=== PATIENT | female | born 1945 | race Caucasian/White ===

== ENCOUNTER 2017-09-03 09:19 | Emergency (ER) | payer MEDICARE ==
--- NOTE | 2017-09-03 10:05 | RAD ---
HISTORY: Altered mental status COMPARISONS: MRI of the brain dated May 07, 2016 TECHNIQUE: Multiple contiguous axial CT scans were obtained of the head without intravenous contrast. FINDINGS: HEMORRHAGE/INFARCT: There is no hemorrhage or acute infarct. MASSES/SHIFT: There is no mass or shift. EXTRA-AXIAL SPACES: There are no extra-axial fluid collections. SULCI AND VENTRICLES: There is diffuse and proportional enlargement of the sulci and ventricles. CEREBRUM: There is hypoattenuation of the periventricular and subcortical white matter. BRAINSTEM: There are no focal parenchymal abnormalities. CEREBELLUM: There are no focal parenchymal abnormalities. VESSELS: The vessels are grossly normal. PARANASAL SINUSES: The paranasal sinuses are clear. ORBITS: The orbits are unremarkable. BONES AND SOFT TISSUE: No bone or soft tissue abnormalities are noted. OTHER: None IMPRESSION: NO ACUTE INTRACRANIAL PATHOLOGY. DIFFUSE INVOLUTIONAL CHANGE WITH CHRONIC SMALL VESSEL ISCHEMIC CHANGES.
[2017-09-03 10:34] LABS: Hematocrit 44 % (35-47); Hemoglobin 14.8 g/dl (12.0-16.0); Mean Corpuscular HGB Conc 33 g/dl (31-36); Mean Corpuscular Hemoglobin 30 pg (27-31); Mean Corpuscular Volume 90 fL (80-97); Mean Platelet Volume 9 um3 (7.4-10.4); Red Blood Count 4.91 10^6/ul (4.0-5.4); Red Cell Distribution Width 14 % (10.5-15); White Blood Count 6.9 10^3/ul (3.5-10.8)
[2017-09-03 10:36] LABS: Urine Bilirubin Negative (Negative); Urine Glucose Negative (Negative); Urine Nitrite Negative (Negative)
[2017-09-03 10:47] LABS: Albumin 4.2 g/dL (3.2-5.2); BUN/Creatinine Ratio 9.5 (8-20); Calcium 10.2 mg/dL (8.6-10.3); EGFR Non-African American 57.5 (>60); Globulin 3.1 g/dL (2-4); Potassium 4.1 mmol/L (3.5-5.0); Total Bilirubin 0.7 mg/dL (0.2-1.0); Total Protein 7.3 g/dL (6.4-8.9)
[2017-09-03 10:48] LABS: Troponin I 0.01 ng/mL (<0.04)
[2017-09-03 11:01] VITALS: BP 153/77
[2017-09-03 11:43] LABS: TSH (Thyroid Stimulating Horm) 1.85 mcIU/mL (0.34-5.60)
--- NOTE | 2017-09-03 13:33 | ED ---
Travis Gonzalez Natalie, scribed for Preet Bush MD on 09/03/17 at 0949 . Altered Mental Status - HPI Summary HPI Summary: The pt is a 72 y/o F BIBA from [facility] to the ED per batch mixer c/o AMS confusion starting this morning. Per batch mixer, pt was at breakfast when she said she was cold, and then she fell asleep with her head down. Another batch mixer awoke the pt, and she was repeatedly saying the almazan. The pt also started stumbling and was confused. Manager Budget says the patient is back to her normal self in the ED. Pt has dementia. - History Of Current Complaint Chief Complaint: EDAltMentalStatus Stated Complaint: AMS Time Seen by Provider: 09/03/17 09:27 Hx Obtained From: Patient, Family/Manager Budget Onset/Duration: Resolved, Suddenly - this morning Timing: Lasting Hours Severity Initially: Moderate Severity Currently: None Character: Confusion Aggravating Factor(s): Nothing Alleviating Factor(s): Nothing Associated Signs And Symptoms: Positive: Negative - Allergies/Home Medications Allergies/Adverse Reactions: Allergies Allergy/AdvReac Type Severity Reaction Status Date / Time No Known Allergies Allergy Verified 08/14/16 19:27 PMH/Surg Hx/FS Hx/Imm Hx Previously Healthy: No EENT History: Denies: Hx Deafness Neurological History: Reports: Hx Dementia - Immunization History Date of Influenza Vaccine: 06/2017 Immunizations Up to Date: Yes Infectious Disease History: No Infectious Disease History: Denies: Traveled Outside the [place] in Last 30 Days - Family History Known Family History: Positive: Other - Hx Hyperthyroidism in mother; Hx Parkinson's in father - Social History Alcohol Use: None Substance Use Type: Reports: None Smoking Status (MU): Never Smoked Tobacco Review of Systems Negative: Fever Neurological: Other - confusion, stumbling All Other Systems Reviewed And Are Negative: Yes Physical Exam - Summary Physical Exam Summary: Appearance: The patient is well-nourished in no acute distress and in no acute pain. Skin: The skin is warm and dry and skin color reflects adequate perfusion. HEENT: The head is normocephalic and atraumatic. The pupils are equal and reactive. The conjunctivae are clear and without drainage. Nares are patent and without drainage. Mouth reveals moist mucous membranes and the throat is without erythema and exudate. The external ears are intact. The ear canals are patent and without drainage. The tympanic membranes are intact. Neck: The neck is supple with full range of motion and non-tender. There are no carotid bruits. There is no neck vein distension. Respiratory: Chest is non-tender. Lungs are clear to auscultation and breath sounds are symmetrical and equal. Cardiovascular: Heart is regular rate and rhythm. There is no murmur or rub auscultated. There is no peripheral edema and pulses are symmetrical and equal. Abdomen: The abdomen is soft and non-tender. There are normal bowel sounds heard in all four quadrants and there is no organomegaly palpated. Musculoskeletal: There is no back tenderness noted. Extremities are non-tender with full range of motion. There is good capillary refill. There is no peripheral edema or calf tenderness elicited. Neurological: Patient is mildy confused but is alert and oriented to person, place and time. The patient has symmetrical motor strength in all four extremities. Cranial nerves are grossly intact. Deep tendon reflexes are symmetrical and equal in all four extremities. Psychiatric: The patient has an appropriate affect and does not exhibit any anxiety or depression. Triage Information Reviewed: Yes Vital Signs On Initial Exam: Initial Vitals Temp Pulse Resp BP Pulse Ox 98.1 F 71 16 178/82 100 09/03/17 09:26 09/03/17 09:26 09/03/17 09:26 09/03/17 09:26 09/03/17 09:26 Vital Signs Reviewed: Yes - Fajardo Coma Scale Coma Scale Total: 14 Diagnostics - Vital Signs Vital Signs Temp Pulse Resp BP Pulse Ox 09/03/17 09:26 98.1 F 71 16 178/82 100 - Laboratory Lab Results: Lab Results 09/03/17 09/03/17 09/03/17 Range/Units 10:08 10:10 10:10 WBC 6.9 (3.5-10.8) 10^3/ul RBC 4.91 (4.0-5.4) 10^6/ul Hgb 14.8 (12.0-16.0) g/dl Hct 44 (35-47) % MCV 90 (80-97) fL MCH 30 (27-31) pg MCHC 33 (31-36) g/dl RDW 14 (10.5-15) % Plt Count 266 (150-450) 10^3/ul MPV 9 (7.4-10.4) um3 Neut % (Auto) 70.7 (38-83) % Lymph % (Auto) 21.4 L (25-47) % Ritchie % (Auto) 6.3 (1-9) % Eos % (Auto) 0.9 (0-6) % Baso % (Auto) 0.7 (0-2) % Absolute Neuts (auto) 4.9 (1.5-7.7) 10^3/ul Absolute Lymphs (auto) 1.5 (1.0-4.8) 10^3/ul Absolute Monos (auto) 0.4 (0-0.8) 10^3/ul Absolute Eos (auto) 0.1 (0-0.6) 10^3/ul Absolute Basos (auto) 0 (0-0.2) 10^3/ul Absolute Nucleated RBC 0 10^3/ul Nucleated RBC % 0.1 INR (Anticoag Therapy) (0.77-1.02) Sodium 136 (133-145) mmol/L Potassium 4.1 (3.5-5.0) mmol/L Chloride 98 L (101-111) mmol/L Carbon Dioxide 32 (22-32) mmol/L Anion Gap 6 (2-11) mmol/L BUN 9 (6-24) mg/dL Creatinine 0.95 (0.51-0.95) mg/dL Est GFR ( Amer) 74.0 (>60) Est GFR (Non-Af Amer) 57.5 (>60) BUN/Creatinine Ratio 9.5 (8-20) Glucose 103 H (70-100) mg/dL Lactic Acid (0.5-2.0) mmol/L Calcium 10.2 (8.6-10.3) mg/dL Total Bilirubin 0.70 (0.2-1.0) mg/dL AST 15 (13-39) U/L ALT 13 (7-52) U/L Alkaline Phosphatase 67 (34-104) U/L Troponin I 0.01 (<0.04) ng/mL Total Protein 7.3 (6.4-8.9) g/dL Albumin 4.2 (3.2-5.2) g/dL Globulin 3.1 (2-4) g/dL Albumin/Globulin Ratio 1.4 (1-3) TSH 1.85 (0.34-5.60) mcIU/mL Urine Color Yellow Urine Appearance Clear Urine pH 8.0 (5-9) Ur Specific Lincoln 1.006 L (1.010-1.030) Urine Protein Negative (Negative) Urine Ketones Negative (Negative) Urine Blood Negative (Negative) Urine Nitrate Negative (Negative) Urine Bilirubin Negative (Negative) Urine Urobilinogen Negative (Negative) Ur Leukocyte Esterase Negative (Negative) Urine Glucose Negative (Negative) Urine Ascorbic Acid * H (Negative) 09/03/17 09/03/17 Range/Units 10:10 10:10 WBC (3.5-10.8) 10^3/ul RBC (4.0-5.4) 10^6/ul Hgb (12.0-16.0) g/dl Hct (35-47) % MCV (80-97) fL MCH (27-31) pg MCHC (31-36) g/dl RDW (10.5-15) % Plt Count (150-450) 10^3/ul MPV (7.4-10.4) um3 Neut % (Auto) (38-83) % Lymph % (Auto) (25-47) % Ritchie % (Auto) (1-9) % Eos % (Auto) (0-6) % Baso % (Auto) (0-2) % Absolute Neuts (auto) (1.5-7.7) 10^3/ul Absolute Lymphs (auto) (1.0-4.8) 10^3/ul Absolute Monos (auto) (0-0.8) 10^3/ul Absolute Eos (auto) (0-0.6) 10^3/ul Absolute Basos (auto) (0-0.2) 10^3/ul Absolute Nucleated RBC 10^3/ul Nucleated RBC % INR (Anticoag Therapy) 0.96 (0.77-1.02) Sodium (133-145) mmol/L Potassium (3.5-5.0) mmol/L Chloride (101-111) mmol/L Carbon Dioxide (22-32) mmol/L Anion Gap (2-11) mmol/L BUN (6-24) mg/dL Creatinine (0.51-0.95) mg/dL Est GFR ( Amer) (>60) Est GFR (Non-Af Amer) (>60) BUN/Creatinine Ratio (8-20) Glucose (70-100) mg/dL Lactic Acid 0.9 (0.5-2.0) mmol/L Calcium (8.6-10.3) mg/dL Total Bilirubin (0.2-1.0) mg/dL AST (13-39) U/L ALT (7-52) U/L Alkaline Phosphatase (34-104) U/L Troponin I (<0.04) ng/mL Total Protein (6.4-8.9) g/dL Albumin (3.2-5.2) g/dL Globulin (2-4) g/dL Albumin/Globulin Ratio (1-3) TSH (0.34-5.60) mcIU/mL Urine Color Urine Appearance Urine pH (5-9) Ur Specific Lincoln (1.010-1.030) Urine Protein (Negative) Urine Ketones (Negative) Urine Blood (Negative) Urine Nitrate (Negative) Urine Bilirubin (Negative) Urine Urobilinogen (Negative) Ur Leukocyte Esterase (Negative) Urine Glucose (Negative) Urine Ascorbic Acid (Negative) Result Diagrams: 09/03/17 10:10 09/03/17 10:10 Lab Statement: Any lab studies that have been ordered have been reviewed, and results considered in the medical decision making process. - CT Brain CT CT Interpretation: No Acute Changes - No acute intracranial pathology. Diffuse involutional change with chronic small vessel ischemic changes. ED physician has reviewed this report. CT Interpretation Completed By: Radiologist - EKG 10:02 Cardiac Rate: NL EKG Rhythm: Sinus Rhythm - 63 BPM EKG Interpretation: ED physician has reviewed this report. Altered Mental Statu Course/Dx - Course Course Of Treatment: Ms. Silvestre was sent in because she seemed more confused at breakfast. By the time she got here she was reported by the staff as being back to her baseline. Her W/U here was negative and she remained stable. - Diagnoses Discharge Diagnoses: Delirium Discharge - Discharge Plan Condition: Stable Disposition: HOME Patient Education Materials: Acute Delirium (ED) Referrals: Nany Booth MD [Primary Care Provider] - The documentation as recorded by the Travis chester Natalie accurately reflects the service I personally performed and the decisions made by me, Preet Bush MD.
== END 2017-09-03 12:01 | disposition home or self-care (01) ==
LOC: ED 09:19
DX: R41.0 Disorientation, unspecified (principal); F03.90 Unspecified dementia, unspecified severity, without behavioral disturbance, psychotic disturbance, mood disturbance, and anxiety
CPT/HCPCS: 36415; 70450; 80053; 81003; 83605; 84443; 84484; 85025; 85610; 93005; 99282

== ENCOUNTER 2018-12-25 08:57 | Inpatient (IN) | payer MEDICARE, OTHER ==
[2018-12-25] MEDS ORDERED: NS 0.9% 1000 ML** 1,000 ML IV ONE (09:24)
[2018-12-25] MEDS ORDERED: Ondansetron INJ* 2 MG/ML VIAL IV ONE (09:24)
--- OUTSIDE RECORDS SUMMARY | 2018-12-25 09:26 | XMS REPORT ---
:1945 Author Organization [facility] Care Team Providers Name Role Phone СЕРГЕЙ GASPAR Unavailable Unavailable Allergies and Adverse Reactions Allergen Qualifier Severity Reaction(s) Comments No Known Drug Allergy Problems Problem Onset Date Resolved Date Status Comments Alzheimer's Disease Active Aphasia Active Hypertension Active Hospital Admission Diagnosis Admission Diagnosis Onset Date Resolved Date Status Comments Dementia Active Medications Home Medications Details Cholecalciferol Oral Tablet 1000 unit, 1 tablet daily Desitin External Cream 13 %, sm amt to buttocks 2x a day FiberCon Oral 1 tablet daily Lisinopril Oral Tablet 20 mg, 1 tablet daily One Daily For Women Oral 1 tablet daily Paxil Oral Tablet 20 mg, 1 tablet daily PreserVision AREDS 2+Multi Vit Oral 1 tablet 2x a day QUEtiapine Fumarate Oral 37.5 daily QUEtiapine Fumarate Oral Tablet 25 mg, 1 tablet daily Robitussin Mucus+Chest Congest Oral 10cc 4x a day, Started: 12/04/2018, Stopped: 12/10/2018, for 7 days Medications Administered Administered Route Dose Bolus/Duration Rate/Duration Additive/Diluents/ Constituents Location Comments Date/Time Medications No information available Hospital Discharge Medications Hospital Discharge Prescribed Medication None Procedures Procedure Date Performed Comments No information available Functional Status Functional and Cognitive Assessment Documentation Date Condition Status No impairments noted 12/07/2018 Active Immunizations Medication Dose/Units Lot# Exp. Date Attractions Associate Name Given No information available Results CHEST 2 VIEW (MsgRcvd 12/07/2018 17:37)Final Results Test Result Flag Reference Range CHEST 2 VIEWS Clinical History: Cough. Technique: Frontal and lateral views of the chest are obtained. Comparison: No films are available for comparison. FINDINGS: LUNGS: Lungs are hyperinflated consistent with COPD. Areas of scarring of the lung bases a left lower lobe retrocardiac nodule cannot be excluded correlate with follow-up CT chest. PLEURA: No pleural effusion is seen. No pneumothorax is evident. MEDIASTINUM: The heart and mediastinal contours are within normal limits.. BONES: No gross osseous pathology. IMPRESSION : Lungs are hyperinflated consistent with COPD. Areas of scarring of the lung bases a left lower lobe retrocardiac nodule cannot be excluded correlate with follow-up CT chest No focal consolidation Electronically Signed By: MARTITA BASHIR MD, I. Date: 12/07/2018 17:35 COMPREHENSIVE W/RATIOS(ELIZABETH: 12/07/2018 17:14[facility]31[facility]Final Results Test Result Flag Reference Range GLUCOSE 104 H 70-100 mg/dl BUN 13 5-32 mg/dl CREATININE, SERUM 0.91 0.50-1.10 mg/dl SODIUM 141 136-146 mmol/l POTASSIUM 3.3 L 3.5-5.3 mmol/l CHLORIDE 100 96-109 mmol/l CARBON DIOXIDE 24 20-32 mmol/l ALBUMIN 4.2 3.5-5.0 g/dl PROTEIN, TOTAL 7.3 6.4-8.2 g/dl CALCIUM 9.9 8.4-10.4 mg/dl ALKALINE PHOSPHATASE 73 10-118 U/l SGOT (AST) 33 3-40 U/l SGPT (ALT) 38 7-50 U/l BILIRUBIN, TOTAL 0.48 0.30-1.20 mg/dl BUN/CREATININE RATIO 14.3 6.0-20.0 GLOBULIN 3.1 2.3-3.5 g/dl ANION GAP 17.0 H 7.0-16.0 mmol/l OSMOLALITY (CALCULATED) 282 280-300 mos/kg A/G RATIO 1.4 1.0-2.0 EGFR (CALCULATED)(ELIZABETH: 12/07/2018 17:14) [place] 17:31)Final Results Test Result Flag Reference Range EGFR 62 >59 mL/min/1.73m2 EGFR, -SPANISH 72 >59 mL/min/1.73m2 Note: Persistent reduction for 3 months or more in an eGFR <60 mL/min/1.73m2 defines CKD. Patients with eGFR values >=60 mL/min/1.73m2 may also have CKD if evidence of persistent proteinuria is present. Additional information may be found at [email or web address]. TSH(ELIZABETH: 12/07/2018 17:14) [facility] [place]07[facility] 17:40)Final Results Test Result Flag Reference Range TSH (THYROTROPIN) 2.980 0.490-4.670 uIU/ml CBC(ELIZABETH: 12/07/2018 17:14) ([facility] 12/07/2018 17:47)Final Results Test Result Flag Reference Range WBC 6.7 4.3-10.9 x10E3/uL RBC 4.71 3.80-5.30 x10E6/uL HEMOGLOBIN 13.7 11.8-15.8 g/dl HEMATOCRIT 41.9 35.0-47.0 % MCV 89.0 82.0-98.0 fl MCH 29.1 27.5-33.5 pg MCHC 32.7 32.0-36.0 g/dl RDW 13.8 11.5-14.5 % PLATELET COUNT 223 130-400 x10E3/uL MPV 11.7 8.6-12.6 fl SEGMENTED NEUTROPHILS 72.0 44.0-74.0 % BAND 2.0 0.0-4.0 % LYMPHOCYTES 15.0 15.0-45.0 % ATYPICAL LYMPHOCYTE 7.0 AB % MONOCYTES 4.0 2.0-13.0 % EOSINOPHILS 0.0 0.0-6.0 % BASOPHILS 0.0 0.0-2.0 % NEUTROPHIL ABSOLUTE 5.0 1.4-7.0 x10E3/uL LYMPHOCYTES ABSOLUTE 1.0 1.0-3.4 x10E3/uL MONOCYTE ABSOLUTE 0.3 0.2-1.0 x10E3/uL EOSINOPHIL ABSOLUTE 0.0 0.0-0.5 x10E3/uL BASOPHIL ABSOLUTE 0.0 0.0-0.2 x10E3/uL DIFFERENTIAL SCAN(ELIZABETH: 12/07/2018 17:14) ([facility] 12/07/2018 17:46)Final Results Test Result Flag Reference Range DIFFERENTIAL SCAN DIFF REQUIRED AB MANUAL DIFFERENTIAL(ELIZABETH: 12/07/2018 17:14) ([facility] 12/07/2018 17:47)Final Results Test Result Flag Reference Range MANUAL DIFFERENTIAL PERFORMED URINALYSIS (W/C+S IF INDICATED)(ELIZABETH: 12/07/2018 18:34) ([facility] 12/07/2018 18: 58)Final Results Test Result Flag Reference Range URINE COLOR YELLOW YELLOW URINE APPEARANCE CLEAR CLEAR URINE SPECIFIC GRAVITY 1.005 1.003-1.035 URINE LEUKOCYTES NEGATIVE NEGATIVE URINE NITRITE NEGATIVE NEGATIVE URINE PH 6.5 5.0-8.0 URINE PROTEIN NEGATIVE NEGATIVE mg/dl URINE GLUCOSE NEGATIVE NEGATIVE mg/dl URINE KETONES NEGATIVE NEGATIVE mg/dl URINE UROBILINOGEN 0.2 NORMAL OR <1 mg/dl URINE BILIRUBIN NEGATIVE NEGATIVE URINE OCCULT BLOOD NEGATIVE NEGATIVE WBC 0-1 0-5 hpf MUCOUS THREADS TRACE AB NEGATIVE hpf URINE C+S IF INDICATED PERFORMED NOT INDICATED Social History Social History Element Description Effective Dates Sex Female 1945 Smoking never smoker Unknown Vital Signs Weight: 77.1 kg (170 lb) stated at 12/07/2018 4:32:59 PMHeight: 165.0 cm (65 inches) Per Patient at 12/07/2018 4:32:59 PMBMI (Body Mass Index): 28.3 kg/m2 at 12/07/2018 4:32:59 PM Date/Time Blood Pressure Heart Rate Respiratory Rate Temperature O2 Saturation 12/07/2018 118/74 mmHg 78 /minute 20 /minute 36.83 C 97% 4:34:17 PM Hospital Discharge Instructions Instruction Thank you for visiting the [facility]-Emergency Department. You have been evaluated today by СЕРГЕЙ GASPAR M.D. for the following condition(s): Chronic late onset Alzheimer's disease with behavioral disturbance. The following test(s) and/or procedure(s) were performed during your visit today. Laboratory Tests CBC w DiffTSHComprehensive PanelUrinalysis, Culture if indicatedFolateVitamin B12RPR Diagnostic Studies Chest 2 ViewEKG Hospital Discharge Diagnoses Diagnosis Onset Date Resolved Date Status Comments Dementia Active Reason For Visit [facility] Reason For Referral None Health Concerns Section Concern Status No information available Medical Equipments Implanted Device Manufacturing Date Expiration Date No information available Assessments Assessment You have been evaluated by СЕРГЕЙ GASPAR M.D for the following conditions: Chronic late onset Alzheimer's disease with behavioral disturbance. The following test(s) and/or procedure(s) were performed during your visit today. Laboratory Tests: CBC w Diff, Comprehensive Panel, Folate, RPR, TSH, Urinalysis, Culture if indicated, and Vitamin B12 Diagnostic Studies: Chest 2 View and EKG Goals Observation Goal Status No information available Treatment Plan Planned Care Start Date No information available Encounters Encounter Diagnosis Location Date Dementia [facility] 12/07/2018
[2018-12-25 09:48] LABS: ABS Basophils 0.1 10^3/ul (0-0.2); ABS Eosinophils 0.1 10^3/ul (0-0.6); ABS Lymphocytes 1.2 10^3/ul (1.0-4.8); ABS Monocytes 0.6 10^3/ul (0-0.8); ABS Neutrophils 7.8 10^3/ul (1.5-7.7); ABS Nucleated RBC 0 10^3/ul; Eosinophil % 0.7 %; Hematocrit 40 % (33-41); Hemoglobin 13.2 g/dL (12.0-16.0); Lymphocyte % 12.3 %; Mean Corpuscular HGB Conc 33 g/dL (31-36); Mean Corpuscular Hemoglobin 30 pg (27-31); Mean Corpuscular Volume 89 fL (80-97); Mean Platelet Volume 9.5 fL (7.4-10.4); Nucleated Red Blood Cells % 0.1; Platelet Count 223 10^3/uL (150-450); Red Blood Count 4.47 10^6 /uL (3.70-4.87); Red Cell Distribution Width 14 % (10.5-15); White Blood Count 9.8 10^3/uL (3.5-10.8)
--- NOTE | 2018-12-25 10:00 | ED ---
Abdominal Pain/Female - HPI Summary HPI Summary: This patient is a 73 year old F brought in by EMS from [facility] with a chief complaint of abd pain since this morning. The staff at [facility] noticed that the patient was grimacing when they would touch her stomach. The patient rates the pain 6/10 in severity. PMHX Dementia. SHX [facility]. Vitals in the room: HR 67 bpm, BP 173/84. Level 5 caveat due to the patients severe dementia. - History of Current Complaint Chief Complaint: EDAbdPain Stated Complaint: ABD PAIN PER EMS Time Seen by Provider: 12/25/18 09:05 Hx Obtained From: Patient, Other: - [facility] staff Hx From Patient Unobtainable Due To: Dementia Onset/Duration: Sudden Onset, Lasting Hours Severity Currently: Moderate Pain Intensity: 6 Pain Scale Used: 0-10 Numeric Location: Diffuse Allergies/Adverse Reactions: Allergies Allergy/AdvReac Type Severity Reaction Status Date / Time No Known Allergies Allergy Verified 12/25/18 12:18 Home Medications: Home Medications Ativan 0.5 MG TAB 1 tab PO DAILY PRN 12/25/18 [History Confirmed 12/25/18] Calcium Polycarbophil [Fibercon] 1 cap PO DAILY 12/25/18 [History Confirmed ] Docusate Sodium 100 mg PO BID 12/25/18 [History Confirmed 12/25/18] PMH/Surg Hx/FS Hx/Imm Hx Cardiovascular History: Reports: Hx Hypertension Sensory History: Denies: Hx Contacts or Glasses, Hx Deafness, Hx Hearing Aid Opthamlomology History: Denies: Hx Contacts or Glasses Neurological History: Reports: Hx Dementia - Surgical History Surgery Procedure, Year, and Place: none known per old records, however pt is level 5 caveat - Immunization History Date of Influenza Vaccine: 06/2017 Infectious Disease History: No Infectious Disease History: Denies: Traveled Outside the [place] in Last 30 Days - Family History Known Family History: Positive: Other - Hx Hyperthyroidism in mother; Hx Parkinson's in father - Social History [facility]: [facility] Alcohol Use: None Substance Use Type: Reports: None Smoking Status (MU): Never Smoked Tobacco Review of Systems - ROS Summary Review of Systems Summary: ROS limited due to patient's dementia, level 5 caveat Positive: Abdominal Pain All Other Systems Reviewed And Are Negative: No Physical Exam - Summary Physical Exam Summary: GENERAL: Patient is a well-developed and nourished female who is lying comfortable in the stretcher. Patient is not in any acute respiratory distress. HEAD AND FACE: Normocephalic EYES: PERRLA, EOMI x 2. EARS: Hearing grossly intact. MOUTH: Oropharynx within normal limits. NECK: Supple, trachea is midline, no adenopathy, no JVD, no carotid bruit. CHEST: Symmetric, no tenderness at palpation LUNGS: Clear to auscultation bilaterally. No wheezing or crackles. CVS: Regular rate and rhythm, S1 and S2 present, no murmurs or gallops appreciated. ABDOMEN: Soft, mild diffuse TTP. Bowel sounds are normal. No abdominal abnormal pulsations. EXTREMITIES: Full ROM in all major joints, no edema, no cyanosis or clubbing. NEURO: Cannot follow commands. SKIN: Dry and warm Triage Information Reviewed: Yes Vital Signs On Initial Exam: Initial Vitals Temp Pulse Resp BP Pulse Ox 98.2 F 66 18 156/86 96 12/25/18 09:06 12/25/18 09:06 12/25/18 09:06 12/25/18 09:06 12/25/18 09:06 Vital Signs Reviewed: Yes Completion Of Physical Exam Limited Due To: Dementia Diagnostics - Vital Signs Vital Signs Temp Pulse Resp BP Pulse Ox 12/25/18 09:43 71 176/115 91 12/25/18 09:13 68 173/84 96 12/25/18 09:12 67 93 12/25/18 09:06 98.2 F 66 18 156/86 96 - Laboratory Lab Results: Lab Results 12/25/18 Range/Units 09:38 WBC 9.8 (3.5-10.8) 10^3/uL RBC 4.47 (3.70-4.87) 10^6 /uL Hgb 13.2 (12.0-16.0) g/dL Hct 40 (33-41) % MCV 89 (80-97) fL MCH 30 (27-31) pg MCHC 33 (31-36) g/dL RDW 14 (10.5-15) % Plt Count 223 (150-450) 10^3/uL MPV 9.5 (7.4-10.4) fL Neut % (Auto) 79.8 % Lymph % (Auto) 12.3 % Boundary % (Auto) 6.4 % Eos % (Auto) 0.7 % Baso % (Auto) 0.8 % Absolute Neuts (auto) 7.8 H (1.5-7.7) 10^3/ul Absolute Lymphs (auto) 1.2 (1.0-4.8) 10^3/ul Absolute Monos (auto) 0.6 (0-0.8) 10^3/ul Absolute Eos (auto) 0.1 (0-0.6) 10^3/ul Absolute Basos (auto) 0.1 (0-0.2) 10^3/ul Absolute Nucleated RBC 0 10^3/ul Nucleated RBC % 0.1 Result Diagrams: 12/25/18 09:38 12/25/18 09:38 Lab Statement: Any lab studies that have been ordered have been reviewed, and results considered in the medical decision making process. - CT Abd/Pelvis CT Interpretation Completed By: Radiologist Summary of CT Findings: 1. SMALL BILATERAL LOWER LOBE INFILTRATES AND TRACE PLEURAL EFFUSIONS. 2. 1 CM RIGHT LOWER LOBE PULMONARY NODULE. 3. THICKENING OF THE WALL OF THE RECTUM AND ANUS SUGGESTIVE OF EITHER PROCTITIS OR A MASS. 4. MILD CHRONIC COMPRESSION FRACTURE OF THE T12 VERTEBRAL BODY. ED physician has reviewed this report Abdominal Pain Fem Course/Dx - Course Course Of Treatment: This patient is a 73 year old F brought in by EMS from [facility] with a chief complaint of abd pain since this morning. The staff at [facility] noticed that the patient was grimacing when they would touch her stomach. The patient rates the pain 6/[address] abd/pelvis reveals, per radiologist, 1. SMALL BILATERAL LOWER LOBE INFILTRATES AND TRACE PLEURAL EFFUSIONS. 2. 1 CM RIGHT LOWER LOBE PULMONARY NODULE. 3. THICKENING OF THE WALL OF THE RECTUM AND ANUS SUGGESTIVE OF EITHER PROCTITIS OR A MASS. 4. MILD CHRONIC COMPRESSION FRACTURE OF THE T12 VERTEBRAL BODY. ED physician has reviewed this radiology report. Bloodwork/UA obtained. In the ED course the patient was given IV fluids, Azithromycin, Iohexol, Ceftriaxone, and Ondansetron. We discussed patient care with Dr. Mendoza, hospitalist, and they recommended admission. - Diagnoses Provider Diagnoses: PNA (pneumonia), Proctitis - Provider Notifications Discussed Care Of Patient With: Hiro Mendoza Time Discussed With Above Provider: 12:26 Instructed by Provider To: Admit As Inpatient Discharge - Sign-Out/Discharge Documenting (check all that apply): Patient Departure - admission Patient Received Moderate/Deep Sedation with Procedure: No - Discharge Plan Condition: Fair Disposition: ADMITTED TO [facility] - Billing Disposition and Condition Condition: FAIR Disposition: Admitted to [facility] - Attestation Statements Document Initiated by Scribe: Yes Documenting Scribe: Urbano Valle Provider For Whom Scribe is Documenting (Include Credential): Dana Castillo Scribkimberly Attestation: Urbano Gonzalez, scribed for Dana Castillo on 12/25/18 at 1518. Scribe Documentation Reviewed: Yes Provider Attestation: The documentation as recorded by the Urbano chester accurately reflects the service I personally performed and the decisions made by Dana dave Status of Scribe Document: Viewed
[2018-12-25 10:04] LABS: Urine Appearance Cloudy; Urine Bilirubin Negative (Negative); Urine Blood Negative (Negative); Urine Color Yellow; Urine Glucose Negative (Negative); Urine Ketones Trace (Negative); Urine Nitrite Negative (Negative); Urine Protein Negative (Negative); Urine Specific Gravity 1.018 (1.010-1.030); Urine Urobilinogen Negative (Negative)
[2018-12-25 10:04] LABS: ALT 15 U/L (7-52); AST 19 U/L (13-39); Albumin 3.6 g/dL (3.2-5.2); Albumin/Globulin Ratio 1.2 (1-3); Alkaline Phosphatase 88 U/L (34-104); Anion Gap 6 mmol/L (2-11); BUN/Creatinine Ratio 13.5 (8-20); Blood Urea Nitrogen 12 mg/dL (6-24); C Reactive Protein 12.11 mg/L (<8.01); CO2 Carbon Dioxide 28 mmol/L (22-32); Calcium 8.9 mg/dL (8.6-10.3); Chloride 104 mmol/L (101-111); EGFR African American 74.8 (>60); EGFR Non-African American 61.8 (>60); Globulin 2.9 g/dL (2-4); Glucose 111 mg/dL (70-100); Potassium 3.6 mmol/L (3.5-5.0); Sodium 138 mmol/L (135-145); Total Protein 6.5 g/dL (6.4-8.9)
[2018-12-25] MEDS ORDERED: Iohexol 300* (CONTRAST) 10 ML SDV IV ONE (10:10)
[2018-12-25] MEDS ORDERED: Azithromycin 500 mg/250 ml NS 500 MG/250 ML BAG IVPB ONE (12:17)
[2018-12-25] MEDS ORDERED: cefTRIAXone(*) 1 GM in NS 0.9% 50 ML* 50 ML IVPB ONE (12:17)
[2018-12-25] MEDS ORDERED: metroNIDAZOLE IV 500 MG/100ML* 500 MG/100 ML BAG IVPB ONE (12:32)
[2018-12-25] MEDS ORDERED: Acetaminophen TAB* 325 MG PO PRN (13:10)
[2018-12-25] MEDS ORDERED: Senna/Docusate (NF) TAB PO PRN (13:10)
[2018-12-25] MEDS ORDERED: HYDROmorphone INJ* 0.5 MG/0.5 ML SYRINGE IV SLOW PU PRN (13:14)
[2018-12-25] MEDS ORDERED: Ondansetron INJ* 2 MG/ML VIAL IV PRN (13:19)
[2018-12-25] MEDS ORDERED: Senna TAB PO PRN (13:19)
[2018-12-25] MEDS ORDERED: Docusate CAP* 100 MG PO PRN (13:19)
--- NOTE | 2018-12-25 14:46 | HP ---
ADMITTING HISTORY AND PHYSICAL: DATE OF ADMISSION: 12/25/18 CHIEF COMPLAINT: Possible abdominal pain. HISTORY OF PRESENT ILLNESS: The patient is a 73-year-old lady with history of Alzheimer's disease, expressive aphasia as well as hypertension, who is a resident of [facility] and was recently discharged back on 11/30/18 for unknown fever without focus with altered mental status. She was in her usual state of health since discharge until a few hours prior to admission when the staff at [facility] noticed that she was grimacing when they would touch her stomach and they surmised that she might be having some abdominal pain. EMS was called and the patient was evaluated in the ED and a CT of the abdomen and pelvis revealed mildly dependent bilateral lower lobe infiltrates of the lung with 1 cm pulmonary nodule along with thickening of the wall of the rectum and anus suggestive of either proctitis or a mass; mild chronic compression fracture of T12 vertebral body. In the ED, she had been given Flagyl, Rocephin , 1 L normal saline bolus, ondansetron, and azithromycin. PAST MEDICAL HISTORY: Expressive aphasia; Alzheimer's disease, moderate; history of hypertension; and poor vision. PAST SURGICAL HISTORY: No claimed or documented surgical history. MEDICATIONS: Her current home medications are as follows: 1. Ativan. 2. Zinc oxide. 3. PreserVision AREDS softgel. 4. Senna-S tablet. 5. Loperamide. 6. Tylenol. 7. Colace. 8. Paroxetine. 9. Cholecalciferol. 10. Multivitamins. 11. Theragran. 12. Lisinopril. 13. Calcium polycarbophil. ALLERGIES: NKDA. FAMILY HISTORY: The patient is unable to provide given her baseline status. SOCIAL HISTORY: The patient resides at [facility]. She is ambulatory. I am unable to get any further social history given the patient's mental status. Her and son, Lex, are healthcare proxies. Per Dr. Castillo, he has spoken with the patient's son, who mentioned that given her advanced age and multiple comorbidities that he would like to focus on prevention. Dr. Castillo mentioned that they would like to take the conservative approach with no colonoscopy or further workup of possible proctitis/mass. REVIEW OF SYSTEMS: Unfortunately, this could not be reliably obtained from the patient given her expressive aphasia. PHYSICAL EXAMINATION GENERAL APPEARANCE: The patient is awake, not in acute distress. VITAL SIGNS: Shows the most recent vital signs of record with blood pressure of 152/105 from previous of 84 per minute heart rate and 158/100, heart rate of 78 from previous. HEENT: Normocephalic, atraumatic. PERRLA. Extraocular muscles intact. Negative for icterus. Moist oral mucosa. Negative throat erythema. NECK: Soft, supple with no cervical lymphadenopathy, no JVD. CHEST: Clear to auscultation bilaterally. Good air entry. No wheezes, rales, or rhonchi. HEART: S1, S2 within normal limits. Regular rate and rhythm. No murmurs, rubs , or gallops. ABDOMEN: Soft. No rebound tenderness. PSYCHIATRIC: No active psychosis, depression, suicidal or homicidal ideation. SKIN: Warm to touch. LABORATORY DATA: Most recent and pertinent laboratories drawn show CBC with WBC, H and H, and platelet counts that were found to be normal. Sodium, potassium, BUN, and creatinine as well as the patient's LFTs were found to be normal. Lipase is less than 10, which is normal. Urinalysis: Specific gravity is 1.018, negative leukocyte esterase. ASSESSMENT AND PLAN: The patient is a 73-year-old lady, a resident at [facility], with history of hypertension, expressive aphasia as well as Alzheimer disease, who was brought to the ED for possible abdominal pain. 1. Proctitis versus mass, might be causing the patient's symptoms, although the patient is a poor historian given her Alzheimer's dementia. At this time, we will place the patient on IV fluids as well as p.r.n. pain meds and we will place the patient on antibiotics given possible infiltrates in the bilateral lung base, which could be indicative of pneumonia, although of note the patient' s respiratory rate is within normal limits at 18 and unlikely to be due to an infectious process and likely due to a mass. We will continue Rocephin, azithromycin, and Flagyl especially given possible pneumonia given bilateral lower lobe infiltrates. 2. Pneumonia. Please see above discussion. We will continue to await cultures. We will send urine for Legionella and Strep pneumoniae urine antigen. It is also possible that what was thought to be consolidation in the lower lobe could be due to atelectasis given her obesity as well as significant pain today, but we will continue watchful waiting and we will continue antibiotic regimen for now until data is more apparent. 3. Hypertension, uncontrolled. Continue lisinopril. This could be due to presumed abdominal pain. We will place the patient on a low-salt, heart- healthy diet as ordered and we will continue watchful waiting. 4. Dementia, well controlled without any behavioral issues. I am unclear as to the source of her expressive aphasia, whether it is due to an advanced dementia or previous stroke; however, cerebrovascular accident has not been recorded as part of her past medical history. 5. T12 vertebral body chronic compression fracture. Continue watchful waiting. No changes reported or noticed on exam. 6. DVT prophylaxis: We will place the patient on heparin subcu q.12 given her advanced age. 7. Disposition: As above. [id number]/CPS #: [id number] MTDD
[2018-12-25] MEDS: metroNIDAZOLE IV 500 MG/100ML* 500 MG/100 ML BAG IVPB SCH (21:55)
[2018-12-25] MEDS: Heparin VIAL(*) 5000 UNITS/ML VIAL (FIVE THOUSAND) SUBCUT SCH (23:42)
[2018-12-26] MEDS: metroNIDAZOLE IV 500 MG/100ML* 500 MG/100 ML BAG IVPB SCH ×3 (04:39→21:01)
[2018-12-26 07:46] LABS: Albumin 3.2 g/dL (3.2-5.2); Calcium 8.2 mg/dL (8.6-10.3); Magnesium 1.9 mg/dL (1.9-2.7); Potassium 3.7 mmol/L (3.5-5.0); Total Bilirubin 0.7 mg/dL (0.2-1.0)
[2018-12-26 07:52] LABS: Albumin/Globulin Ratio 1.4 (1-3); BUN/Creatinine Ratio 11.1 (8-20); EGFR African American 83.4 (>60); EGFR Non-African American 68.9 (>60); Globulin 2.3 g/dL (2-4); Phosphorus 3.2 mg/dL (2.5-5.0); Total Protein 5.5 g/dL (6.4-8.9)
[2018-12-26 08:05] LABS: Hematocrit 38 % (33-41); Hemoglobin 12.5 g/dL (12.0-16.0); Mean Corpuscular HGB Conc 33 g/dL (31-36); Mean Corpuscular Hemoglobin 29 pg (27-31); Mean Corpuscular Volume 89 fL (80-97); Mean Platelet Volume 9.5 fL (7.4-10.4); Platelet Count 192 10^3/uL (150-450); Red Blood Count 4.25 10^6 /uL (3.70-4.87); Red Cell Distribution Width 14 % (10.5-15); White Blood Count 6.4 10^3/uL (3.5-10.8)
[2018-12-26] MEDS: PARoxetine HCL TAB* 20 MG PO SCH (09:18)
[2018-12-26] MEDS: Heparin VIAL(*) 5000 UNITS/ML VIAL (FIVE THOUSAND) SUBCUT SCH ×2 (09:18→23:08)
[2018-12-26] MEDS: cefTRIAXone(*) 1 GM in NS 0.9% 50 ML* 50 ML IVPB SCH (09:18)
[2018-12-26] MEDS: Lisinopril TAB* 10 MG PO SCH (09:18)
[2018-12-26] MEDS: Calcium Polycarbophil TAB* 625 MG PO SCH (09:18)
[2018-12-26] MEDS: Azithromycin IV(*) 250 MG in NS 0.9% 250 ML* 250 ML IVPB SCH (09:54)
[2018-12-26 10:42] LABS: C Reactive Protein 26.49 mg/L (<8.01)
[2018-12-26] MEDS: LORazepam TAB(*) 0.5 MG PO PRN (11:57)
[2018-12-26 13:03] LABS: Erythrocyte Sed Rate 31 mm/Hr (0-29)
--- NOTE | 2018-12-26 16:39 | PN ---
Subjective Date of Service: 12/26/18 Interval History: Pt seen and examined. Meds and labs reviewed. CC: N/A ROS: Could not be reliably obtained given expressive aphasia PHYSICAL EXAM: GEN APPEARANCE: Awake, not in acute distress HEENT: NC/AT, PERRLA, moist oral mucosa, (-) throat erythema NECK: Soft, supple, (-) cervical LAD, (-)JVD HEART: S1S2 WNL, RRR, No MRG CHEST: CTA, BL, GAE, No W/R/R ABD: Soft, ND/NT, NABS 4x Q EXT: No C/C/E SKIN: Warm to touch PSYCH: Could not be reliably obtained Objective Active Medications: Acetaminophen (Tylenol Tab*) 650 mg PO Q6H PRN PRN Reason: FEVER/PAIN Calcium Polycarbophil (Fibercon Tab*) 625 mg PO DAILY [facility] Last Admin: 12/26/18 09:18 Dose: 625 mg Docusate Sodium (Colace Cap*) 100 mg PO DAILY PRN PRN Reason: CONSTIPATION Heparin Sodium (Porcine) (Heparin Vial(*)) 5,000 units SUBCUT Q12HR [facility] Last Admin: 12/26/18 09:18 Dose: 5,000 units Hydromorphone HCl (Dilaudid Inj*) 0.5 mg IV SLOW PU Q6H PRN PRN Reason: PAIN Azithromycin 250 mg/ Sodium (Chloride) 250 mls @ 250 mls/hr IVPB Q24H [facility] Last Admin: 12/26/18 09:54 Dose: 250 mls/hr Metronidazole/Sodium Chloride (Flagyl 500 Mg Ivpb*) 500 mg in 100 mls @ 100 mls /hr IVPB Q8H [facility] Last Admin: 12/26/18 12:50 Dose: 100 mls/hr Ceftriaxone Sodium 1 gm/ (Sodium Chloride) 50 mls @ 200 mls/hr IVPB Q24H [facility] Last Admin: 12/26/18 09:18 Dose: 200 mls/hr Lisinopril (Prinivil Tab*) 20 mg PO QAM [facility] Last Admin: 12/26/18 09:18 Dose: 20 mg Lorazepam (Ativan Tab(*)) 1 mg PO DAILY PRN PRN Reason: AGITATION Last Admin: 12/26/18 11:57 Dose: 1 mg Ondansetron HCl (Zofran Inj*) 4 mg IV Q6H PRN PRN Reason: NAUSEA Paroxetine HCl (Paxil Tab*) 20 mg PO DAILY [facility] Last Admin: 12/26/18 09:18 Dose: 20 mg Senna (Senokot Tab*) 2 tab PO DAILY PRN PRN Reason: CONSTIPATION Vital Signs - 8 hr 12/26/18 12/26/18 12/26/18 11:39 11:57 15:10 Temperature 97.3 F 97.0 F Pulse Rate 64 70 Respiratory 16 16 18 Rate Blood Pressure 132/71 140/70 (mmHg) O2 Sat by Pulse 99 89 Oximetry 12/26/18 12/26/18 12/26/18 15:15 15:42 15:43 Temperature 97.0 F Pulse Rate 70 Respiratory 17 18 Rate Blood Pressure 140/70 (mmHg) O2 Sat by Pulse 96 Oximetry Oxygen Devices in Use Now: None Result Diagrams: 12/26/18 07:46 12/26/18 06:39 Additional Lab and Data: Lab Results 12/25/18 Range/Units 09:38 WBC 9.8 (3.5-10.8) 10^3/uL RBC 4.47 (3.70-4.87) 10^6 /uL Hgb 13.2 (12.0-16.0) g/dL Hct 40 (33-41) % MCV 89 (80-97) fL MCH 30 (27-31) pg MCHC 33 (31-36) g/dL RDW 14 (10.5-15) % Plt Count 223 (150-450) 10^3/uL MPV 9.5 (7.4-10.4) fL Neut % (Auto) 79.8 % Lymph % (Auto) 12.3 % [place] % (Auto) 6.4 % Eos % (Auto) 0.7 % Baso % (Auto) 0.8 % Absolute Neuts (auto) 7.8 H (1.5-7.7) 10^3/ul Absolute Lymphs (auto) 1.2 (1.0-4.8) 10^3/ul Absolute Monos (auto) 0.6 (0-0.8) 10^3/ul Absolute Eos (auto) 0.1 (0-0.6) 10^3/ul Absolute Basos (auto) 0.1 (0-0.2) 10^3/ul Absolute Nucleated RBC 0 10^3/ul Nucleated RBC % 0.1 Microbiology and Other Data: Microbiology 12/25/18 09:38 Aerobic Blood Culture - Preliminary Blood Venous No Growth Day 1 Anaerobic Blood Culture - Preliminary No Growth Day 1 12/25/18 09:40 Aerobic Blood Culture - Preliminary Blood Venous No Growth Day 1 Anaerobic Blood Culture - Preliminary No Growth Day 1 12/25/18 09:53 Legionella Urinary Antigen - Final Urine Negative Legionella Antigen Streptococcus pneumoniae Ag Screen - Final Negative S. pneumo Antigen Assess/Plan/Problems-Billing Assessment: - Patient Problems (1) Rectal mass Current Visit: Yes Status: Acute Code(s): K62.9 - DISEASE OF ANUS AND RECTUM , UNSPECIFIED SNOMED Code(s): 370009247 Comment: -Per pts son, no colonoscopy nor intervention -Continue Abx for now until infectious proctitis has been ruled out, although given stability and only mildly elevated ESR, likely inflamed due to mass -Will touch base w/son in AM (2) Lung nodule Current Visit: Yes Status: Acute Code(s): R91.1 - SOLITARY PULMONARY NODULE SNOMED Code(s): 309480083 Comment: -Defer surveillance w/pt PCP (3) Pulmonary infiltrates Current Visit: Yes Status: Acute Code(s): R91.8 - OTHER NONSPECIFIC ABNORMAL FINDING OF LUNG FIELD SNOMED Code(s): 093212840 Comment: -Clinically, the pt does not seem to have PNA and likely due to atelectasis of bases -D/C Abx in AM if continues to clinically improve, without definitive focus of infection, w/cultures remaining negative -Continue watchful waiting (4) HTN (hypertension) Current Visit: Yes Status: Acute Code(s): I10 - ESSENTIAL (PRIMARY) HYPERTENSION SNOMED Code(s): 31938777 Comment: -Improved control -Continue current regimen (5) Dementia Current Visit: No Status: Acute Code(s): F03.90 - UNSPECIFIED DEMENTIA WITHOUT BEHAVIORAL DISTURBANCE SNOMED Code(s): 00575153 Comment: -Stable and non-behavioral at this time -Continue watchful waiting (6) Compression fracture Current Visit: Yes Status: Acute Code(s): NGO6053 - SNOMED Code(s): 880350716 Comment: #T12 Vertebral body compression fx: -No change from previous imaging -Continue watchful wiaitng (7) DVT prophylaxis Current Visit: No Status: Acute Code(s): DJE6895 - SNOMED Code(s): 377906628 Comment: -Continue Heparin SQ q12H Status and Disposition: -Cont. to follow Cx and clinical course and D/C abx if continues to be unremarkable and improves -D/W son tomorrow to prepare for D/C in 1-2 days
[2018-12-27] MEDS: metroNIDAZOLE IV 500 MG/100ML* 500 MG/100 ML BAG IVPB SCH ×3 (04:38→19:33)
[2018-12-27 06:05] LABS: ABS Basophils 0 10^3/ul (0-0.2); ABS Eosinophils 0.2 10^3/ul (0-0.6); ABS Lymphocytes 1.1 10^3/ul (1.0-4.8); ABS Monocytes 0.6 10^3/ul (0-0.8); ABS Neutrophils 4.2 10^3/ul (1.5-7.7); ABS Nucleated RBC 0 10^3/ul; Eosinophil % 3.3 %; Hematocrit 38 % (33-41); Hemoglobin 12.5 g/dL (12.0-16.0); Lymphocyte % 18.3 %; Mean Corpuscular HGB Conc 33 g/dL (31-36); Mean Corpuscular Hemoglobin 29 pg (27-31); Mean Corpuscular Volume 90 fL (80-97); Mean Platelet Volume 9.6 fL (7.4-10.4); Nucleated Red Blood Cells % 0; Platelet Count 193 10^3/uL (150-450); Red Blood Count 4.26 10^6 /uL (3.70-4.87); Red Cell Distribution Width 14 % (10.5-15); White Blood Count 6.2 10^3/uL (3.5-10.8)
[2018-12-27 06:29] LABS: BUN/Creatinine Ratio 9.9 (8-20); CRP High Sensitivity 19.39 mg/L (<2.00); Calcium 8.6 mg/dL (8.6-10.3); EGFR African American 83.4 (>60); EGFR Non-African American 68.9 (>60); Potassium 3.4 mmol/L (3.5-5.0)
[2018-12-27 07:08] LABS: Erythrocyte Sed Rate 26 mm/Hr (0-29)
[2018-12-27] MEDS ORDERED: NS 0.9% 250 ML* 250 ML ONE (09:18)
[2018-12-27] MEDS: Lisinopril TAB* 10 MG PO SCH (09:30)
[2018-12-27] MEDS: cefTRIAXone(*) 1 GM in NS 0.9% 50 ML* 50 ML IVPB SCH (09:30)
[2018-12-27] MEDS: PARoxetine HCL TAB* 20 MG PO SCH (09:30)
[2018-12-27] MEDS: Heparin VIAL(*) 5000 UNITS/ML VIAL (FIVE THOUSAND) SUBCUT SCH ×2 (09:30→19:32)
[2018-12-27] MEDS: Calcium Polycarbophil TAB* 625 MG PO SCH (09:55)
[2018-12-27] MEDS: Azithromycin IV(*) 250 MG in NS 0.9% 250 ML* 250 ML IVPB SCH (10:55)
[2018-12-27] MEDS: LORazepam TAB(*) 0.5 MG PO PRN ×2 (11:38→23:26)
--- NOTE | 2018-12-27 18:07 | PN ---
Subjective Date of Service: 12/27/18 Interval History: Pt seen and examined. Meds and labs reviewed. CC: N/A ROS: Could not be reliably obtained given expressive aphasia PHYSICAL EXAM: GEN APPEARANCE: Awake, not in acute distress HEENT: NC/AT, PERRLA, moist oral mucosa, (-) throat erythema NECK: Soft, supple, (-) cervical LAD, (-)JVD HEART: S1S2 WNL, RRR, No MRG CHEST: CTA, BL, GAE, No W/R/R ABD: Soft, ND/NT, NABS 4x Q EXT: No C/C/E SKIN: Warm to touch PSYCH: Could not be reliably obtained Objective Active Medications: Acetaminophen (Tylenol Tab*) 650 mg PO Q6H PRN PRN Reason: FEVER/PAIN Calcium Polycarbophil (Fibercon Tab*) 625 mg PO DAILY [facility] Last Admin: 12/27/18 09:55 Dose: 625 mg Docusate Sodium (Colace Cap*) 100 mg PO DAILY PRN PRN Reason: CONSTIPATION Heparin Sodium (Porcine) (Heparin Vial(*)) 5,000 units SUBCUT Q12HR [facility] Last Admin: 12/27/18 09:30 Dose: 5,000 units Hydromorphone HCl (Dilaudid Inj*) 0.5 mg IV SLOW PU Q6H PRN PRN Reason: PAIN Metronidazole/Sodium Chloride (Flagyl 500 Mg Ivpb*) 500 mg in 100 mls @ 100 mls /hr IVPB Q8H [facility] Last Admin: 12/27/18 13:05 Dose: 100 mls/hr Lisinopril (Prinivil Tab*) 20 mg PO QAM [facility] Last Admin: 12/27/18 09:30 Dose: 20 mg Lorazepam (Ativan Tab(*)) 1 mg PO DAILY PRN PRN Reason: AGITATION Last Admin: 12/27/18 11:38 Dose: 1 mg Ondansetron HCl (Zofran Inj*) 4 mg IV Q6H PRN PRN Reason: NAUSEA Paroxetine HCl (Paxil Tab*) 20 mg PO DAILY [facility] Last Admin: 12/27/18 09:30 Dose: 20 mg Senna (Senokot Tab*) 2 tab PO DAILY PRN PRN Reason: CONSTIPATION Vital Signs - 8 hr 12/27/18 12/27/18 12/27/18 11:38 11:42 13:42 Temperature 97.0 F Pulse Rate 110 Respiratory 18 20 16 Rate Blood Pressure 107/89 (mmHg) O2 Sat by Pulse Oximetry 12/27/18 12/27/18 15:23 15:27 Temperature 97.4 F 97.4 F Pulse Rate 78 Respiratory 18 Rate Blood Pressure 144/74 (mmHg) O2 Sat by Pulse 97 Oximetry Oxygen Devices in Use Now: None Result Diagrams: 12/27/18 05:22 12/27/18 05:22 Additional Lab and Data: Lab Results 12/25/18 Range/Units 09:38 WBC 9.8 (3.5-10.8) 10^3/uL RBC 4.47 (3.70-4.87) 10^6 /uL Hgb 13.2 (12.0-16.0) g/dL Hct 40 (33-41) % MCV 89 (80-97) fL MCH 30 (27-31) pg MCHC 33 (31-36) g/dL RDW 14 (10.5-15) % Plt Count 223 (150-450) 10^3/uL MPV 9.5 (7.4-10.4) fL Neut % (Auto) 79.8 % Lymph % (Auto) 12.3 % [place] % (Auto) 6.4 % Eos % (Auto) 0.7 % Baso % (Auto) 0.8 % Absolute Neuts (auto) 7.8 H (1.5-7.7) 10^3/ul Absolute Lymphs (auto) 1.2 (1.0-4.8) 10^3/ul Absolute Monos (auto) 0.6 (0-0.8) 10^3/ul Absolute Eos (auto) 0.1 (0-0.6) 10^3/ul Absolute Basos (auto) 0.1 (0-0.2) 10^3/ul Absolute Nucleated RBC 0 10^3/ul Nucleated RBC % 0.1 Microbiology and Other Data: Microbiology 12/25/18 09:38 Aerobic Blood Culture - Preliminary Blood Venous No Growth Day 1 Anaerobic Blood Culture - Preliminary No Growth Day 1 12/25/18 09:40 Aerobic Blood Culture - Preliminary Blood Venous No Growth Day 1 Anaerobic Blood Culture - Preliminary No Growth Day 1 12/25/18 09:53 Legionella Urinary Antigen - Final Urine Negative Legionella Antigen Streptococcus pneumoniae Ag Screen - Final Negative S. pneumo Antigen Assess/Plan/Problems-Billing Assessment: - Patient Problems (1) Rectal mass Current Visit: Yes Status: Acute Code(s): K62.9 - DISEASE OF ANUS AND RECTUM , UNSPECIFIED SNOMED Code(s): 526862281 Comment: -Per pts son, no colonoscopy nor intervention -Spoke w/pts son Lex (# in chart) as well as his sister Mallory [place] ). Explained that mass regardless of whether malignant or benign can lead to complications such as obstruction, pressure injury causing inflammation , etc. I also made clear that there is no sure way to differentiate a benign and malignant tumor unless w/clear signs of metastasis and/or biopsy is done. Therefore, I was clear that cancer is a possibility in the setting of an incidental lung nodule that would need surveillance. Due to the above difficulties and possible future complications of an unadressed mass, I offered hospice care/end-of life care. Pts children were very open to the idea but requests that a GI consult be made to make sure no other options are possible--- d/w Dr. Tran who agrees with the above impression; spoke w/Dr. Dickson who will be seeing pt later -Family agreeable to be evaluated by palliative care/hospice to see if she qualifies; pt may qualify with dementia but will defer with risk assessment of palliative team in the setting of undiagnosed mass -Continue Abx for now until infectious proctitis has been ruled out, although given stability and only mildly elevated ESR, likely inflamed due to mass -Will touch base w/son in AM (2) Lung nodule Current Visit: Yes Status: Acute Code(s): R91.1 - SOLITARY PULMONARY NODULE SNOMED Code(s): 805430731 Comment: -Defer surveillance w/pt PCP if at all pending code status update (3) Pulmonary infiltrates Current Visit: Yes Status: Acute Code(s): R91.8 - OTHER NONSPECIFIC ABNORMAL FINDING OF LUNG FIELD SNOMED Code(s): 151913533 Comment: -Clinically, the pt does not seem to have PNA and likely due to atelectasis of bases and cultures remain negative x 2 days; inflammatory markers only mildly elevated -D/C Abx; likely atelectasis (4) HTN (hypertension) Current Visit: Yes Status: Acute Code(s): I10 - ESSENTIAL (PRIMARY) HYPERTENSION SNOMED Code(s): 31727089 Comment: -Improved control -Continue current regimen (5) Dementia Current Visit: No Status: Acute Code(s): F03.90 - UNSPECIFIED DEMENTIA WITHOUT BEHAVIORAL DISTURBANCE SNOMED Code(s): 87968250 Comment: -Stable and non-behavioral at this time -Continue watchful waiting (6) Compression fracture Current Visit: Yes Status: Acute Code(s): STQ8222 - SNOMED Code(s): 019533518 Comment: -No change from previous imaging -Continue watchful wiaitng (7) DVT prophylaxis Current Visit: No Status: Acute Code(s): YGR9327 - SNOMED Code(s): 809670355 Comment: -Continue Heparin SQ q12H Status and Disposition: -Touch base with palliative care/hospice care regarding other factors that may qualify her for hospice/end-of life care -Touch base w/GI -Touch base w/family regarding code status; currently DNR/DNI
[2018-12-27 19:09] LABS: Carcinoembryonic Antigen 1.9 ng/mL (0.1-5.0)
--- NOTE | 2018-12-27 19:20 | CONSULT ---
Palliative / Hospice Consult Ordering Provider: Hiro Mendoza - Subjective Code Status: Full Code-Needs Follow Up Advance Directives Location: No Advance Directives MOLST Part A Completed: No - Plan to meet with patient's son/HCP tomorrow MOLST Part E Completed:: No - History or Present Illness History or Present Illness: This 73 year old woman has been a resident of the [facility] unit at [place] for several years, and was brought to the ER today as she seemed to be complaining of abdominal pain and seemed to exhibit tenderness when touched. She was hospitalized recently in November (11/30/18) for fever. The patient isnormally ambulatory, according to record review. She has no history of CVA and is described as having expressive aphasia, but when I spoke with her today she had the typical "word salad" finding of Alzheimer's dementia. She can articulate words but puts them in no meaningful order or context. Her work up revealed bilateral LL infiltrates on CXR with a 0.8 cm nodule noted in the RLL corresponding to a 1 cm nodule noted on CT scan, although of note no such finding was present on the recent CXR here of 11/30/18.She is being treated for presumed pneumonia, although her wbc is WNL and she is afebrile. Her labs in general are unremarkable with the exception of an elevated ESR of 31 and elevated CRP of 26.49. She also has mild hypocalcemia. CT scan of the abdomen todaqay reveals a thickening in the wall of the rectum and anus, considered consistent with either proctitis or mass. Her son Lex has requested no interventions to help define this mass, including biopsy. Lab Values: Abnormal Lab Results 12/27/18 12/27/18 05:22 05:22 WBC 6.2 RBC 4.26 Hgb 12.5 Hct 38 MCV 90 MCH 29 MCHC 33 RDW 14 Plt Count 193 MPV 9.6 Neut % (Auto) 68.3 Lymph % (Auto) 18.3 Mccone % (Auto) 9.4 Eos % (Auto) 3.3 Baso % (Auto) 0.7 Absolute Neuts (auto) 4.2 Absolute Lymphs (auto) 1.1 Absolute Monos (auto) 0.6 Absolute Eos (auto) 0.2 Absolute Basos (auto) 0 Absolute Nucleated RBC 0 Nucleated RBC % 0 ESR 26 Sodium 138 Potassium 3.4 L Chloride 104 Carbon Dioxide 25 Anion Gap 9 BUN 8 Creatinine 0.81 Est GFR ( Amer) 83.4 Est GFR (Non-Af Amer) 68.9 BUN/Creatinine Ratio 9.9 Glucose 92 Calcium 8.6 C-React Prot High Sens 19.39 H Carcinoembryonic Ag 1.9 Laboratory Last Values WBC 6.2 10^3/uL (3.5-10.8) 12/27/18 05:22 RBC 4.26 10^6 /uL (3.70-4.87) 12/27/18 05:22 Hgb 12.5 g/dL (12.0-16.0) 12/27/18 05:22 Hct 38 % (33-41) 12/27/18 05:22 MCV 90 fL (80-97) 12/27/18 05:22 MCH 29 pg (27-31) 12/27/18 05:22 MCHC 33 g/dL (31-36) 12/27/18 05:22 RDW 14 % (10.5-15) 12/27/18 05:22 Plt Count 193 10^3/uL (150-450) 12/27/18 05:22 MPV 9.6 fL (7.4-10.4) 12/27/18 05:22 Neut % (Auto) 68.3 % 12/27/18 05:22 Lymph % (Auto) 18.3 % 12/27/18 05:22 Mccone % (Auto) 9.4 % 12/27/18 05:22 Eos % (Auto) 3.3 % 12/27/18 05:22 Baso % (Auto) 0.7 % 12/27/18 05:22 Absolute Neuts (auto) 4.2 10^3/ul (1.5-7.7) 12/27/18 05:22 Absolute Lymphs (auto) 1.1 10^3/ul (1.0-4.8) 12/27/18 05:22 Absolute Monos (auto) 0.6 10^3/ul (0-0.8) 12/27/18 05:22 Absolute Eos (auto) 0.2 10^3/ul (0-0.6) 12/27/18 05:22 Absolute Basos (auto) 0 10^3/ul (0-0.2) 12/27/18 05:22 Absolute Nucleated RBC 0 10^3/ul 12/27/18 05:22 Nucleated RBC % 0 12/27/18 05:22 ESR 26 mm/Hr (0-29) 12/27/18 05:22 Sodium 138 mmol/L (135-145) 12/27/18 05:22 Potassium 3.4 mmol/L (3.5-5.0) L 12/27/18 05:22 Chloride 104 mmol/L (101-111) 12/27/18 05:22 Carbon Dioxide 25 mmol/L (22-32) 12/27/18 05:22 Anion Gap 9 mmol/L (2-11) 12/27/18 05:22 BUN 8 mg/dL (6-24) 12/27/18 05:22 Creatinine 0.81 mg/dL (0.51-0.95) 12/27/18 05:22 Est GFR ( Amer) 83.4 (>60) 12/27/18 05:22 Est GFR (Non-Af Amer) 68.9 (>60) 12/27/18 05:22 BUN/Creatinine Ratio 9.9 (8-20) 12/27/18 05:22 Glucose 92 mg/dL (70-100) 12/27/18 05:22 Lactic Acid 0.7 mmol/L (0.5-2.0) 12/25/18 15:29 Calcium 8.6 mg/dL (8.6-10.3) 12/27/18 05:22 Phosphorus 3.2 mg/dL (2.5-5.0) 12/26/18 06:39 Magnesium 1.9 mg/dL (1.9-2.7) 12/26/18 06:39 Total Bilirubin 0.70 mg/dL (0.2-1.0) 12/26/18 06:39 AST 18 U/L (13-39) 12/26/18 06:39 ALT 12 U/L (7-52) 12/26/18 06:39 Alkaline Phosphatase 77 U/L (34-104) 12/26/18 06:39 C-Reactive Protein 26.49 mg/L (<8.01) H 12/26/18 06:39 C-React Prot High Sens 19.39 mg/L (<2.00) H 12/27/18 05:22 Total Protein 5.5 g/dL (6.4-8.9) L 12/26/18 06:39 Albumin 3.2 g/dL (3.2-5.2) 12/26/18 06:39 Globulin 2.3 g/dL (2-4) 12/26/18 06:39 Albumin/Globulin Ratio 1.4 (1-3) 12/26/18 06:39 Lipase < 10 U/L (11.0-82.0) L 12/25/18 09:38 Carcinoembryonic Ag 1.9 ng/mL (0.1-5.0) 12/27/18 05:22 Urine Color Yellow 12/25/18 09:53 Urine Appearance Cloudy 12/25/18 09:53 Urine pH 7.0 (5-9) 12/25/18 09:53 Ur Specific Heyburn 1.018 (1.010-1.030) 12/25/18 09:53 Urine Protein Negative (Negative) 12/25/18 09:53 Urine Ketones Trace (Negative) A 12/25/18 09:53 Urine Blood Negative (Negative) 12/25/18 09:53 Urine Nitrate Negative (Negative) 12/25/18 09:53 Urine Bilirubin Negative (Negative) 12/25/18 09:53 Urine Urobilinogen Negative (Negative) 12/25/18 09:53 Ur Leukocyte Esterase Negative (Negative) 12/25/18 09:53 Urine Glucose Negative (Negative) 12/25/18 09:53 Urine Ascorbic Acid * (Negative) A 12/25/18 09:53 - Objective Active Medications: Acetaminophen (Tylenol Tab*) 650 mg PO Q6H PRN PRN Reason: FEVER/PAIN Calcium Polycarbophil (Fibercon Tab*) 625 mg PO DAILY [facility] Last Admin: 12/27/18 09:55 Dose: 625 mg Docusate Sodium (Colace Cap*) 100 mg PO DAILY PRN PRN Reason: CONSTIPATION Heparin Sodium (Porcine) (Heparin Vial(*)) 5,000 units SUBCUT Q12HR [facility] Last Admin: 12/27/18 09:30 Dose: 5,000 units Hydromorphone HCl (Dilaudid Inj*) 0.5 mg IV SLOW PU Q6H PRN PRN Reason: PAIN Metronidazole/Sodium Chloride (Flagyl 500 Mg Ivpb*) 500 mg in 100 mls @ 100 mls /hr IVPB Q8H [facility] Last Admin: 12/27/18 13:05 Dose: 100 mls/hr Lisinopril (Prinivil Tab*) 20 mg PO QAM [facility] Last Admin: 12/27/18 09:30 Dose: 20 mg Lorazepam (Ativan Tab(*)) 1 mg PO DAILY PRN PRN Reason: AGITATION Last Admin: 12/27/18 11:38 Dose: 1 mg Ondansetron HCl (Zofran Inj*) 4 mg IV Q6H PRN PRN Reason: NAUSEA Paroxetine HCl (Paxil Tab*) 20 mg PO DAILY [facility] Last Admin: 12/27/18 09:30 Dose: 20 mg Senna (Senokot Tab*) 2 tab PO DAILY PRN PRN Reason: CONSTIPATION Vital Signs: Vital Signs: Temp Pulse Resp BP Pulse Ox 97.4 F 78 18 144/74 97 12/27/18 15:27 12/27/18 15:27 12/27/18 15:27 12/27/18 15:27 12/27/18 15:27 Patient Weight: Weight 142 lb 11.2 oz Intake and Output: Intake & Output 12/25/18 12/26/18 12/27/18 12/28/18 06:59 06:59 06:59 06:59 Intake Total 1999 1373 570 Balance 1999 1373 570 Weight 142 lb 11.2 oz Intake: IV Fluids 1325 60 ABX - AZITHROMYCIN 250 ABX - FLAGYL 30 IVF & Abx 25 30 IVPB 325 333 300 ABX - AZITHROMYCIN 250 ABX - FLAGYL 333 IVF & Abx 225 Oral 350 980 270 Other: Estimated Void Medium Medium Large Date of Last Bowel unknown Movement # Bowel Movements 0 0 1 Estimated Stool Amount Medium # Voids 1 2 2 ADLs: Meal Record Start: 12/25/18 13: 52 Freq: DAILY@0900,1400,1800 Status: Active Protocol: Created 12/25/18 13:52 System (Rec: 12/25/18 13:52 System MED-C02) Document 12/25/18 14:00 [id number] (Rec: 12/25/18 16:59 [email or web address] MED-C11) Document 12/25/18 17:40 [id number] (Rec: 12/25/18 17:40 [id number] MED-C11) Document 12/26/18 08:32 [id number] (Rec: 12/26/18 08:32 [id number] MED-C11) Document 12/26/18 14:00 [id number] (Rec: 12/26/18 14:52 [id number] MED-C09) Document 12/26/18 18:00 [id number] (Rec: 12/26/18 18:00 [id number] MED-C09) Document 12/27/18 09:00 [id number] (Rec: 12/27/18 09:14 [id number] MED-C09) Document 12/27/18 13:20 [id number] (Rec: 12/27/18 13:20 [id number] MED-C09) Document 12/27/18 18:00 [id number] (Rec: 12/27/18 18:25 [id number] MED-C09) Intake and Output Start: 12/25/18 09: 09 Freq: Status: Active Protocol: Created 12/25/18 09:09 System (Rec: 12/25/18 09:09 System [id number]) Document 12/26/18 08:00 [id number] (Rec: 12/26/18 08:00 [id number] MED-C14) Intake and Output Start: 12/25/18 13: 52 Freq: DAILY@0600,1400,2200 Status: Active Protocol: Created 12/25/18 13:52 System (Rec: 12/25/18 13:52 System MED-C02) Document 12/25/18 14:00 [id number] (Rec: 12/25/18 16:09 [id number] MED-C11) Document 12/25/18 21:20 [id number] (Rec: 12/25/18 21:20 [id number] MED-C26) Document 12/26/18 04:21 [id number] (Rec: 12/26/18 04:23 [id number] MED-C26) Document 12/26/18 14:00 [id number] (Rec: 12/26/18 14:52 [id number] MED-C09) Document 12/26/18 22:00 [id number] (Rec: 04/15/19 22:43 [id number] MED-C11) Document 12/27/18 06:00 [id number] (Rec: 12/27/18 06:24 [id number] MED-C09) Document 12/27/18 13:20 [id number] (Rec: 12/27/18 13:20 [id number] MED-C09) Document 12/27/18 13:45 [id number] (Rec: 12/27/18 13:48 [id number] MED-C15) General Impression: Pleasant, emotionally labile woman who has maintained social interaction skills and gestures, but speaks with no comprehensible communication, word salad. She is sitting comfortably in the wiseman in a Ivory chair. Head: Symmetrical Eyes: No Scleral Icterus Ears/Nose/Mouth/Throat: NL Teeth, Lips, Gums Neck: NL Appearance and Movements; NL JVP Cardiovascular: NL Sounds; No Murmurs; No JVD Respiratory: Symmetrical Chest Expansion and Respiratory Effort Abdominal: NL Sounds; No Tenderness; No Distention Extremities: No Edema Neurological: - - Patient is not oriented, but is alert and responsive. - Assessment Assessment: This woman is pleasantly demented, and has no comprehensible speech, is incontinent of bowel and bladder, but is able to ambulate and feed herself. Without having an extensive history, I would estimate her FAST score at 6e, moderately severe dementia. I do not see evidence of aspiration, although it might be worth obtaining a swallow evaluation to rule this out in light of her possible pneumonia. To qualify for hospice services, i.e. to have a prognosis of 6 months or less based on dementia, patients must have a FAST score of 7 or beyond, AND have had either aspiration pneumonia, pyelonephritis, septicemia, multiple stage 3-4 decubitus ulcers, or recurrent fever over the past 12 months , OR inability to maintain adequate fluid and nutrition, evidenced by 10% weight loss over the prior 6 months or having an albumin of <2.5 gm/dl. She is presenting with a sun-centimeter pulmonary nodule of uncertain significance, and a thickened anorectal wall. I took the liberty of adding a CEA to her labs, and it is normal at 1.9. Her abdominal pain and elevated ESR and CRP are more consistent with an inflammatory process, such as proctitis or inflammatory bowel disease. From my current perspective, she does not seem appropriate for hospice services. Unfortunately her son was not here when I saw her. She has no advance directives and is a full code, although her son says he spoke with her PCP and they had decided on a DNR status. I have arranged to meet with Lex tomorrow to explain my findings, and we will complete a MOLST form and I will explore the patient's history further in case I am missing some life-limiting illness that would justify hospice services. I do not see any other unmet palliative needs at this time. Thank you for requesting consultation. - Plan Consult Plan (MU): Palliative - Time On Unit Date of Evaluation: 12/27/18 Hospice Consult Time in: 18:30 Hospice Consult Time Out: 19:30 Hospice Consult Time Total: 60 > 50% of Time Spend In Counseling or Coordinating Care: Yes
--- NOTE | 2018-12-27 21:15 | CONS ---
GASTROENTEROLOGY CONSULT: DATE OF CONSULT: 12/27/18 CONSULTING PHYSICIAN: Hiro Mendoza MD. REASON FOR CONSULTATION: Abnormal rectum on CT scan in a woman admitted with reports of abdominal pain. HISTORY: History is obtained from prior charts, nursing staff, and the patient' s daughter, Zoila Boston ([phone] in [place]). The patient has been at [facility] for 2-1/2 years, having been brought there by her family when dementia prevented her living independently in [place], where she had been most of her life. She has had a gradual decline. There have been issues with incontinence and soiling, and the daughter states that there had been quite a struggle with combativeness regarding being soiled a couple of days ago. The next morning, the patient was complaining of abdominal pain and was taken to the emergency room. There, she was afebrile with normal vitals. Her white count was normal at 9.8 and has diminished in the next couple of days. She has been placed on a soft diet and has been taking in a little bit. There has been no emesis or fever. The patient does not appear to be in pain or complaining of anything in particular. Today, per the nursing staff, she has not had any bowel movement. She has eaten relatively little. Per the patient's daughter, there have not been particular problems eating or with tolerance of meals. There has been trouble with incontinence. The daughter does not know specifically about any prior gastrointestinal illnesses, but is aware that her mother had a hysterectomy 15 or 20 years ago. The patient has always been very responsible with healthcare and therefore, the daughter presumes she had a colonoscopy or two through the years. The patient' s , who in 2011, was a family physician. PAST MEDICAL HISTORY: 1. Alzheimer's. 2. History of hypertension. 3. History of hysterectomy. MEDICATIONS: See history and physical. Of GI relevance are loperamide and polycarbophil. Patient also has listed senna. SOCIAL HISTORY: Patient's son lives in [place] and is the primary contact. He was unavailable this afternoon (cell [phone]). Thus, the patient's daughter in [place] was contacted. 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 REVIEW OF SYSTEMS: No history known of TIA, CVA, seizure, LA, arrhythmias, syncope, viral hepatitis, or rectal bleeding. PHYSICAL EXAM: She is an elderly woman, in bed, mumbling and unable to have a conversation. Her eyes are open. Her skin is intact and in good condition. She has no adenopathy. Breath sounds are intact, though a formal exam is not possible. She does not respond to voice. There is no focal abnormality. Heart sounds are regular. The abdomen is symmetric with normal bowel sounds, soft, and nontender. Rolling to her side, perianal inspection is normal. No leakage. Digital rectal shows slightly diminished tone and smooth rectal mucosa right up to the mid or upper rectum. There is a little bit of soft pasty stool, submitted for Hemoccult. No abnormalities palpated. Extremities show no edema. IMAGING REVIEW: CT scan is reviewed, sagittal and coronal, and the wall of the rectum is somewhat diffusely thickened, but there is stool and gas present. There is no focal mass. Rest of the abdomen is unremarkable. LABS: CBC shows hemoglobin 13.2, MCV 89, platelets 223, and LFTs normal. Albumin is 3.6 and showing a declining trend over the last 3 years. IMPRESSION: My feeling is that the anorectal area is healthy. There is no abnormality felt on exam. I do not believe a colonoscopy is actually an active consideration and thus, it is a moot point. The CT scan can misread organs that move or have muscular wray. In regards to her poor p.o. intake, in conversation with the patient's daughter , the issue of a gastrostomy tube was brought up. It would seem to me an intervention that would only prolong her multisystem decline and add a burden of additional procedures, and I gave my general perspective of being against it , though it could be an option should it be the ethical and philosophic decision of the family to do so. [id number]/CPS #: [id number] MTDD
[2018-12-28] MEDS: metroNIDAZOLE IV 500 MG/100ML* 500 MG/100 ML BAG IVPB SCH ×3 (04:51→22:17)
[2018-12-28] MEDS: Heparin VIAL(*) 5000 UNITS/ML VIAL (FIVE THOUSAND) SUBCUT SCH ×2 (09:43→22:15)
[2018-12-28] MEDS: Calcium Polycarbophil TAB* 625 MG PO SCH (09:43)
[2018-12-28] MEDS: Lisinopril TAB* 10 MG PO SCH (09:43)
[2018-12-28] MEDS: PARoxetine HCL TAB* 20 MG PO SCH (09:43)
--- NOTE | 2018-12-28 14:35 | PN ---
Progress Note - Progress Note Date of Service: 12/28/18 Note: Met with patient's son, Lex Montelongo, to discuss patient's status. He was informed that patient is not a candidate for hospice services. Her dementia is not advanced to the extent required for hospice. The patient was feeding herself lunch with eating utensils when I arrived today. Lex had located the patient's living will, which specifies no feeding tube or artificial nutrition in the case of terminal illness, and also places an emphasis on comfort measures. Lex is concerned because he would like to avoid hospitalizations for his mother, but the regulations at [facility] often require transport to the ER for evaluation. He will discuss this further with his mother's PCP, Dr. Luli Locke. We met for 45 minutes and all his questions were answered, and he signed a MOLST form specifying DNR/DNI/DNH/ no MARY, but antibiotics okay. The discharge plan is for return to [facility].
--- NOTE | 2018-12-28 15:16 | PN ---
Subjective Date of Service: 12/28/18 Interval History: VS: WNL Labs: hypokalemia- repleted; CRP- elevated, but trending down Pt has expressive aphasia, and is unable to provide ROS or answer questions. Son is in room with pt. We discussed that colon mass is unlikely, as it was not discovered on digital exam, despite proximity to anus. Discussed secondary finding of pulmonary nodule with recommendation that patient receive non contrast chest CT now, with results and follow up outpatient. Son would like to defer to PCP and does not wish to have CT chest performed while the patient is in the hospital. Pt appears well. She continues to have BM and is tolerating eating and drinking with no issues. She has been walking with no problems. Objective Active Medications: Acetaminophen (Tylenol Tab*) 650 mg PO Q6H PRN Calcium Polycarbophil (Fibercon Tab*) 625 mg PO DAILY [facility] Docusate Sodium (Colace Cap*) 100 mg PO DAILY PRN Heparin Sodium (Porcine) (Heparin Vial(*)) 5,000 units SUBCUT Q12HR [facility] Hydromorphone HCl (Dilaudid Inj*) 0.5 mg IV SLOW PU Q6H PRN Metronidazole/Sodium Chloride (Flagyl 500 Mg Ivpb*) 500 mg in 100 mls @ 100 mls /hr IVPB Q8H [facility] Lisinopril (Prinivil Tab*) 20 mg PO QAM [facility] Lorazepam (Ativan Tab(*)) 1 mg PO DAILY PRN Ondansetron HCl (Zofran Inj*) 4 mg IV Q6H PRN Paroxetine HCl (Paxil Tab*) 20 mg PO DAILY [facility] Senna (Senokot Tab*) 2 tab PO DAILY PRN Vital Signs - 8 hr 12/28/18 12/28/18 12/28/18 07:45 08:00 11:36 Temperature 97.2 F 98.1 F Pulse Rate 65 75 Respiratory 16 16 16 Rate Blood Pressure 128/74 142/77 (mmHg) O2 Sat by Pulse 96 94 Oximetry Oxygen Devices in Use Now: None Appearance: Pt is sitting up in bed smiling. She is awake and is pleasant. Eyes: No Scleral Icterus, PERRLA Ears/Nose/Mouth/Throat: NL Teeth, Lips, Gums, Clear Oropharnyx, Mucous Membranes Moist Neck: NL Appearance and Movements; NL JVP, Trachea Midline Respiratory: Symmetrical Chest Expansion and Respiratory Effort, Clear to Auscultation Cardiovascular: NL Sounds; No Murmurs; No JVD, RRR, No Edema Abdominal: NL Sounds; No Tenderness; No Distention, No Hepatosplenomegaly, - - Abdomen nontender to deep and light palpation. Extremities: No Edema, No Clubbing, Cyanosis Neurological: Alert and Oriented x 3 Result Diagrams: 12/27/18 05:22 12/27/18 05:22 Additional Lab and Data: Lab Results 12/25/18 Range/Units 09:38 WBC 9.8 (3.5-10.8) 10^3/uL RBC 4.47 (3.70-4.87) 10^6 /uL Hgb 13.2 (12.0-16.0) g/dL Hct 40 (33-41) % MCV 89 (80-97) fL MCH 30 (27-31) pg MCHC 33 (31-36) g/dL RDW 14 (10.5-15) % Plt Count 223 (150-450) 10^3/uL MPV 9.5 (7.4-10.4) fL Neut % (Auto) 79.8 % Lymph % (Auto) 12.3 % Schuyler % (Auto) 6.4 % Eos % (Auto) 0.7 % Baso % (Auto) 0.8 % Absolute Neuts (auto) 7.8 H (1.5-7.7) 10^3/ul Absolute Lymphs (auto) 1.2 (1.0-4.8) 10^3/ul Absolute Monos (auto) 0.6 (0-0.8) 10^3/ul Absolute Eos (auto) 0.1 (0-0.6) 10^3/ul Absolute Basos (auto) 0.1 (0-0.2) 10^3/ul Absolute Nucleated RBC 0 10^3/ul Nucleated RBC % 0.1 Microbiology and Other Data: Microbiology 12/25/18 09:38 Aerobic Blood Culture - Preliminary Blood Venous No Growth Day 1 Anaerobic Blood Culture - Preliminary No Growth Day 1 12/25/18 09:40 Aerobic Blood Culture - Preliminary Blood Venous No Growth Day 1 Anaerobic Blood Culture - Preliminary No Growth Day 1 12/25/18 09:53 Legionella Urinary Antigen - Final Urine Negative Legionella Antigen Streptococcus pneumoniae Ag Screen - Final Negative S. pneumo Antigen Assess/Plan/Problems-Billing Assessment: Pt is a 73 yof with PMHx alzheimer's, expressive aphasia, hypertension who presents with abdominal pain. - Patient Problems (1) Rectal mass Comment: -GI consulted, felt no mass on palpation. Review of CT showed thickened rectal wall with stool and gas pattern, no focal mass; CEA 1.9; negative stool for occult blood; pt having BMs regularly -Per pt's son, no colonoscopy or intervention -Continue to monitor (2) Lung nodule Comment: -Discussed with patient's son, and he would like to defer to PCP. Offered inpatient CT chest, and he refused at this time. (3) Pulmonary infiltrates Comment: -Clinically, the pt does not seem to have PNA and likely due to atelectasis of bases and cultures remain negative x 2 days; inflammatory markers only mildly elevated -D/C Abx; likely atelectasis (4) Dementia Comment: -Stable and non-behavioral at this time -Continue watchful waiting (5) Compression fracture Comment: -No change from previous imaging -Continue watchful wiaitng (6) HTN (hypertension) Comment: -Improved control -Continue current regimen (7) DVT prophylaxis Comment: -Heparin SQ (8) Do not resuscitate Comment: -MOLST completed today Status and Disposition: Inpatient. Son defered further investigation of pulmonary nodule to discussion with PCP. Likely discharge back to [facility] tomorrow.
[2018-12-28] MEDS: LORazepam TAB(*) 0.5 MG PO PRN (18:25)
[2018-12-28] MEDS: Potassium Chlor TAB* 20 MEQ TAB.ER PO SCH ×2 (20:00→22:14)
[2018-12-29] MEDS: metroNIDAZOLE IV 500 MG/100ML* 500 MG/100 ML BAG IVPB SCH (04:07)
[2018-12-29 09:05] VITALS: BP 128/79
[2018-12-29] MEDS: PARoxetine HCL TAB* 20 MG PO SCH (09:08)
[2018-12-29] MEDS: Heparin VIAL(*) 5000 UNITS/ML VIAL (FIVE THOUSAND) SUBCUT SCH (09:08)
[2018-12-29] MEDS: Calcium Polycarbophil TAB* 625 MG PO SCH (09:09)
[2018-12-29] MEDS: Lisinopril TAB* 10 MG PO SCH (09:09)
--- NOTE | 2018-12-29 13:11 | DS ---
CC: Dr. Luli Locke* DISCHARGE SUMMARY: DATE OF ADMISSION: 12/25/18 DATE OF DISCHARGE: 12/29/18 PRIMARY CARE PROVIDER: Luli Locke MD ATTENDING PHYSICIAN: Dr. Nolan Sanderson* (dictated by ANDREW Goodman). PRIMARY DIAGNOSES: 1. Possible proctitis. 2. Pulmonary nodule. SECONDARY DIAGNOSES: 1. Alzheimer's disease. 2. Expressive aphasia. 3. Hypertension. 4. Poor vision. CONSULTATIONS WHILE IN THE HOSPITAL: Dr. Wiliam Dickson on 12/27/18. IMAGING REVIEW: CT scan is reviewed sagittal and coronal and the wall of the rectum is somewhat diffusely thickened, but there is stool and gas present. There is no focal mass. Rest of the abdomen is unremarkable. Impression: My feeling is that the anorectal area is healthy. There is no abnormalities felt on exam. I do not believe the colonoscopy is actually an active consideration and thus, it is a moot point. The CT scan can misread organs that move or have muscular wray. STUDIES WHILE IN THE HOSPITAL: Abdomen and pelvis CT on 12/25/18, impression: Small bilateral lower lobe infiltrates and trace pleural effusions. A 1 cm right lower lobe pulmonary nodule. Thickening of the wall of the rectum and anus suggestive of either proctitis or mass. Mild chronic compression fracture of the T12 vertebral body. Chest x-ray on 12/27/18, impression: Mild left basilar airspace consolidation may represent atelectasis or pneumonia. Subtle 0.8 cm nodule at the peripheral right lung base corresponds with parenchymal nodule on 12/25/18 CT. DISCHARGE MEDICATIONS: Home medications: 1. Ativan 0.5 mg 1 tab p.o. daily p.r.n. agitation. 2. Zinc oxide 13% topical b.i.d. 3. PreserVision AREDS softgel 1 tab p.o. b.i.d. 4. Senna-S tablet 1 tab p.o. daily p.r.n. constipation. 5. Loperamide HCl 4 mg p.o. daily p.r.n. loose stools. 6. Acetaminophen 650 mg p.o. q.4 hours p.r.n. fever/pain. 7. Docusate sodium 100 mg p.o. b.i.d. 8. Paroxetine HCl 20 mg p.o. daily. 9. Cholecalciferol 2000 units p.o. daily. 10. Multivitamins/minerals 1 tab p.o. daily. 11. Lisinopril 20 mg p.o. q.a.m. 12. Calcium polycarbophil 1 cap p.o. daily. New home medications: Metronidazole 500 mg p.o. t.i.d. x9 doses. HISTORY OF PRESENT ILLNESS/HOSPITAL COURSE: Ms. Silvestre is a 73-year-old female with a past medical history of Alzheimer's and hypertension. She is a resident of [facility]. She presented to the ER on 12/25/18 after [facility] staff noticed facial grimacing when they would palpate the stomach. EMS brought her to the ER. A CT of the abdomen and pelvis was obtained, which showed 1 cm pulmonary nodule and thickened wall of the rectum and anus suggestive of proctitis versus mass. The patient was admitted to the hospital. She was placed on antibiotics. Discussion was had with her son regarding colonoscopy versus intervention. He decided to forgo colonoscopy. Dr. Dickson , Gastroenterology was consulted. His physical exam was negative, see above. He also reviewed the CAT scan and felt that there was no focal mass and that the rectal area was somewhat thickened. CEA was obtained and was not elevated with a level of 1.9. The patient will be discharged with continuation of metronidazole t.i.d. for 9 more doses, which will complete a 7 day course of metronidazole. Regarding lung nodule, the patient had a discussion with the hospitalist staff regarding further imaging. He prefers to forgo imaging at this time and defer to primary care physician. He was offered a CAT scan of the chest, but states that he would like to discuss Ms. Silvestre's recent findings with his primary care provider and defer to her guidance. Throughout the patient's stay, she showed no signs of infection. There is no fever or leukocytosis. Her blood pressure was somewhat elevated at the beginning of her stay but started to trend downward and she was within normal range at discharge. All other vital signs were within normal limits throughout her stay. She was noted to have 1 episode of hypokalemia, which was repleted. It is noted that the patient does have expressive aphasia, so she is difficult to obtain an appropriate review of systems from. Upon entering, I ask how she is doing and she says "good," but otherwise does not answer questions with appropriate answers. Ms. Silvestre is stable for discharge. PHYSICAL EXAM: Vital signs are temperature 98.6 temporal, heart rate 70, respiratory rate 18, oxygen saturation 97% on room air, blood pressure 128/79. General: Ms. Silvestre is a well-developed, well-nourished, older white woman. She is sitting up in bed, smiling. She is pleasantly confused. Cardiovascular : Regular rate and rhythm with S1, S2 present. No murmur, rubs, or gallops. No JVD. Tele reveals normal sinus rhythm. Respiratory: Symmetrical chest expansion with no use of accessory muscles. Lungs are clear to auscultation anteriorly. There is no rhonchi, wheezes, or rubs. The patient unable to follow instructions for deep breathing. Abdomen: Bowel sounds in all quadrants. The abdomen is soft and nontender to palpation. There is no distension. There is no hepatosplenomegaly. Extremities: Skin is warm and smooth bilaterally. There is no edema, clubbing, or cyanosis. Radial and pedal pulses are palpable. Neuro: The patient is awake. She is alert. She is not oriented. She is able to move all her extremities. Physical exam rolling to her side, perianal inspection is normal. No leakage. Digital rectal shows slightly diminished tone and smooth rectal mucosa right up to the mid or upper rectum. There is a little bit of soft pasty stool submitted for Hemoccult. No abnormalities palpated. DISCHARGE PLAN: Ms. Silvestre will be discharged to [facility]. ACTIVITY: As tolerated. DIET: Heart healthy. MEDICATIONS: As above. EDUCATION: 1. Follow up with primary care physician in 4 to 7 days. Discussed pulmonary nodule seen on CT abdomen/pelvis and chest x-ray and discussed further testing. Discussed with son and he refused CT chest while the patient was inpatient with request to defer to PCP regarding further imaging of the chest. 2. Continue metronidazole 500 mg t.i.d. x9 doses, next dose due at 1300. 3. Return to the ER or nearest hospital if you experience any worsening of symptoms, shortness of breath, lightheadedness, dizziness, chest discomfort, high fevers, chills, night sweats, loss of consciousness, or any other worrisome signs or symptoms. This is a summarized report of a complex medical history and hospital stay. For further details, please see the entire medical record. TIME SPENT: Approximately 35 minutes was spent on this discharge, greater than half of that time was spent [id number] with the patient and her son discussing discharge plans and instructions. ANDREW ESCOBAR [id number]/CPS #: [id number] RADHA
== END 2018-12-29 11:45 | DRG 394 ==
LOC: ED 08:57 → MED 13:08 → OBSVTOIN 12-26 09:31
PROVIDERS: ADMIT Student in an Organized Health Care Education/Training Program; ATTEND Internal Medicine
DX: K62.89 Other specified diseases of anus and rectum (principal); R47.01 Aphasia; M48.54XA Collapsed vertebra, not elsewhere classified, thoracic region, initial encounter for fracture; J98.11 Atelectasis; R91.1 Solitary pulmonary nodule; G30.9 Alzheimer's disease, unspecified; F02.80 Dementia in other diseases classified elsewhere, unspecified severity, without behavioral disturbance, psychotic disturbance, mood disturbance, and anxiety; I10 Essential (primary) hypertension; H54.7 Unspecified visual loss; E87.6 Hypokalemia; Z66 Do not resuscitate; R91.8 Other nonspecific abnormal finding of lung field; R15.9 Full incontinence of feces; R32 Unspecified urinary incontinence; Z79.1 Long term (current) use of non-steroidal anti-inflammatories (NSAID); Z79.899 Other long term (current) drug therapy; Z88.6 Allergy status to analgesic agent
CPT/HCPCS: 36415; 71045; 74177; 80048; 80053; 81003; 82272; 82378; 83605; 83690; 83735; 84100; 85025; 85027; 85652; 86140; 86141; 87040; 87899; 99284; A9270-GY; J0456; J0696; J1644; J2405; J3490; Q9967

== ENCOUNTER 2019-07-11 15:12 | Emergency (ER) | payer MEDICARE, OTHER ==
--- NOTE | 2019-07-11 15:38 | ED ---
Complex/Multi-Sys Presentation - HPI Summary HPI Summary: 74 year old female presents to [facility] by EMS for an unwitnessed fall at her facility. THIS IS A LEVEL 5 CAVEAT. PATIENT IS UNABLE TO GIVE HISTORY DUE TO DEMENTIA. When asked if anything is hurting, she replied no. When asked if she felt pain in her head or neck, she replied no. Patient is a resident of [facility]. - History Of Current Complaint Chief Complaint: EDFall Time Seen by Provider: 07/11/19 15:22 Hx Obtained From: Patient, EMS Hx From Patient Unobtainable Due To: Dementia - CODE MUSA Onset/Duration: Sudden Onset, Other - Presents due to unwitnessed fall. - Allergies/Home Medications Allergies/Adverse Reactions: Allergies Allergy/AdvReac Type Severity Reaction Status Date / Time No Known Allergies Allergy Verified 12/25/18 12:18 Home Medications: Home Medications Sennosides [Senna] 8.6 mg PO QAM PRN 07/11/19 [History Confirmed 07/11/19] Vit A/Vit C/Vit E/Zinc/Copper [Preservision Areds Softgel] 1 each PO BID [History Confirmed 07/11/19] risperiDONE TAB* [RisperDAL*] 0.5 mg PO DAILY 07/11/19 [History Confirmed ] PMH/Surg Hx/FS Hx/Imm Hx Endocrine/Hematology History: Denies: Hx Diabetes Cardiovascular History: Reports: Hx Hypertension Sensory History: Denies: Hx Contacts or Glasses, Hx Deafness, Hx Hearing Aid Opthamlomology History: Denies: Hx Contacts or Glasses Neurological History: Reports: Hx Dementia - Surgical History Surgery Procedure, Year, and Place: none known per old records, however pt is level 5 caveat - Immunization History Date of Influenza Vaccine: 06/2017 Infectious Disease History: Unable to Obtain/Confirm Infectious Disease History: Denies: Traveled Outside the [place] in Last 30 Days - Family History Known Family History: Positive: Other - Hx Hyperthyroidism in mother; Hx Parkinson's in father - Social History Alcohol Use: None Substance Use Type: Reports: None Smoking Status (MU): Never Smoked Tobacco Review of Systems - ROS Summary Review of Systems Summary: THIS IS A LEVEL 5 CAVEAT. PATIENT IS UNABLE TO GIVE HISTORY DUE TO DEMENTIA Negative: Fever Musculoskeletal: Negative - Neg - Neck or head pain All Other Systems Reviewed And Are Negative: No Physical Exam - Summary Physical Exam Summary: THIS IS A LEVEL 5 CAVEAT. PATIENT UNABLE TO GIVE HISTORY DUE TO DEMENTIA. Appearance: Well-appearing, Well-nourished, lying in bed comfortably. Opens eyes when asked. Responses are incoherent. Can answer yes or no questions. Skin: Warm, dry, no obvious rash Eyes: sclera anicteric, no conjunctival pallor ENT: mucous membranes moist, pharynx appears normal Neck: Supple, nontender Respiratory: Clear to auscultation, no signs of respiratory distress Cardiovascular: Normal S1, S2. No murmurs. Normal distal pulses in tibial and radial bilaterally. Abdomen: Soft, nontender, normal active bowel sounds present Musculoskeletal: Normal, Strength/ROM Intact Neurological: Alert but not oriented, awake and alert, mentation is normal. Psychiatric: affect is normal, does not appear anxious or depressed Triage Information Reviewed: Yes Vital Signs On Initial Exam: Initial Vitals Temp Pulse Resp BP Pulse Ox 97.0 F 68 16 89/52 95 07/11/19 15:20 07/11/19 15:20 07/11/19 15:20 07/11/19 15:20 07/11/19 15:20 Vital Signs Reviewed: Yes Completion Of Physical Exam Limited Due To: Level 5 - THIS IS A LEVEL 5 CAVEAT. PATIENT IS UNABLE TO GIVE HISTORY DUE TO DEMENTIA Procedures - Sedation Patient Received Moderate/Deep Sedation with Procedure: No Diagnostics - Vital Signs Vital Signs Temp Pulse Resp BP Pulse Ox 07/11/19 15:20 97.0 F 68 16 89/52 95 - Laboratory Lab Statement: Any lab studies that have been ordered have been reviewed, and results considered in the medical decision making process. Complex Multi-Symp Course/Dx Course Of Treatment: 74 year old female presents to [facility] by EMS for an unwitnessed fall at her facility. THIS IS A LEVEL 5 CAVEAT. PATIENT IS UNABLE TO GIVE HISTORY DUE TO DEMENTIA. When asked if anything is hurting, she replied no. When asked if she felt pain in her head or neck, she replied no. Patient is a resident of [facility]. Upon physical exam, the patient was alert but not oriented. She opens her eyes to voice. Responses are incoherent, but can answer yes or no questions. The rest of the exam is normal. Diagnosis is hypotension and an unwitnessed fall. Patient is ambulating and normal. Patient is discharged back to [facility]. - Diagnoses Provider Diagnoses: Hypotension, Fall Discharge ED - Sign-Out/Discharge Documenting (check all that apply): Patient Departure - Discharge Plan Condition: Good Disposition: HOME Patient Education Materials: Fall Prevention for Older Adults (ED), Hypotension (ED) Referrals: Nany Booth MD [Medical Doctor] - Additional Instructions: Mrs. Silvestre's BP has been running low, which may have contributed to her fall. I would recommend reducing the dose of her lisinopril to 10 mg daily going forward, hold for SBP<110. - Billing Disposition and Condition Condition: GOOD Disposition: Home - Attestation Statements Document Initiated by Antony: Yes Documenting Scribe: Bryce Robertson Provider For Whom Antony is Documenting (Include Credential): Dr. Preet Paz Scribe Attestation: IBryce, scribed for Dr. Preet Paz on 07/14/19 at 0155. Scribe Documentation Reviewed: Yes Provider Attestation: The documentation as recorded by the scribeBryce accurately reflects the service I personally performed and the decisions made by me, Dr. Preet Paz Status of Scribe Document: Viewed
[2019-07-11 17:51] VITALS: BP 150/95
== END 2019-07-11 17:40 | disposition home or self-care (01) ==
LOC: ED 15:12
DX: I95.9 Hypotension, unspecified (principal); F03.90 Unspecified dementia, unspecified severity, without behavioral disturbance, psychotic disturbance, mood disturbance, and anxiety; I10 Essential (primary) hypertension; W19.XXXA Unspecified fall, initial encounter; Y93.9 Activity, unspecified; Y92.10 Unspecified residential institution as the place of occurrence of the external cause
CPT/HCPCS: 99283